=== PATIENT | female | born 1960 | race Caucasian/White ===

== ENCOUNTER 2017-03-12 11:37 | Emergency (ER) | payer OTHER ==
[2017-03-12] MEDS ORDERED: LIDOCAINE 1%, 20ML ONE (11:52)
== END 2017-03-12 13:23 | disposition home or self-care (01) ==
LOC: ED 12:50
DX: T81.89XA Other complications of procedures, not elsewhere classified, initial encounter (principal); Y83.8 Other surgical procedures as the cause of abnormal reaction of the patient, or of later complication, without mention of misadventure at the time of the procedure; Y92.89 Other specified places as the place of occurrence of the external cause
CPT/HCPCS: 71010; 99283

== ENCOUNTER 2018-08-17 18:34 | Inpatient (IN) | payer OTHER ==
[~2018-08-17] VITALS: Ht 177.8 cm; Wt 61.3 kg
[~2018-08-17 18:34] MED LIST: FOLI0.8T2 PO; HYDR-3237 PO; IBUP1TAB11 PO; [UNRECOGNIZED DRUG - OTHER] PO
[2018-08-17 19:29] VITALS: BP 112/71
[2018-08-17] MEDS ORDERED: OSIM80TA PO (19:37)
[2018-08-17] MEDS ORDERED: IBUP-1623 PO (19:37)
[2018-08-17] MEDS ORDERED: ZOLP5TAB PO (19:37)
[2018-08-17] MEDS ORDERED: PROC5TAB40 PO (19:37)
[2018-08-17] MEDS ORDERED: OXYC-302 PO (19:37)
[2018-08-17] MEDS ORDERED: ONDANSETRON 2MG/ML, 2ML IVPush PRN (20:00)
[2018-08-17] MEDS ORDERED: hydrALAzine 20 MG/ML, 1ML IVPush PRN (20:00)
[2018-08-17 20:25] LABS: BASOPHILS # (AUTO) 0.02 x10^3/uL (0-0.1); BASOPHILS % (AUTO) 0 % (0-1); EOSINOPHILS # (AUTO) 0.04 x10^3/uL (0-0.4); EOSINOPHILS % (AUTO) 1 % (1-7); LYMPHOCYTES # (AUTO) 0.97 x10^3/uL (1-3.4); LYMPHOCYTES % (AUTO) 14 % (22-44); MD NO; MEAN CORPUSCULAR HEMOGLOBIN 30.6 pg (27.0-34.8); MEAN CORPUSCULAR HGB CONC 33.8 g/dL (32.4-35.8); MEAN CORPUSCULAR VOLUME 90.7 fL (80-100); MEAN PLATELET VOLUME 7.9 fL (7.4-10.4); MONOCYTES # (AUTO) 0.43 x10^3/uL (0.2-0.8); MONOCYTES % (AUTO) 6 % (2-9); NEUTROPHILS # (AUTO) 5.46 x10^3/uL (1.8-6.8); NEUTROPHILS % (AUTO) 79 % (42-75); PLATELET COUNT 232 x10^3/uL (130-400); RED BLOOD COUNT 4.05 x10^6/uL (3.82-5.3); RED CELL DISTRIBUTION WIDTH 13.8 % (9.6-15.2)
[2018-08-17 20:29] LABS: INTERNATIONAL NORMALIZED RATIO 1.08 (0.93-1.1); PROTHROMBIN TIME 11.3 Seconds (9.6-11.5)
[2018-08-17] MEDS ORDERED: PROCHLORPERAZINE 5 MG/ML, 2ML IM PRN (20:30)
[2018-08-17] MEDS ORDERED: HYDROmorphone 1 MG/ML, 1ML INJ IM PRN (20:30)
[2018-08-17] MEDS ORDERED: MORPHINE SULFATE 4 MG/ML, 1ML IVPush PRN (20:30)
[2018-08-17 20:31] LABS: ANION GAP 8 mmol/L (5-15); CALCIUM 8.5 mg/dL (8.5-10.1); CHLORIDE 105 mmol/L (98-107); CREATININE 0.57 mg/dL (0.55-1.02)
[2018-08-17] MEDS: AMPICILLIN/SULBACTAM 3 GM in SODIUM CHLORIDE 0.9% 100 ML IV SCH (21:22)
[2018-08-17] MEDS: PROCHLORPERAZINE 5 MG/ML, 2ML IVPush PRN (21:22)
[2018-08-17] MEDS ORDERED: SODIUM CHLORIDE 0.9% 1,000 ML IV SCH (21:30)
[2018-08-17] MEDS: SODIUM CHLORIDE 0.9% 1,000 ML IV SCH (21:30)
[2018-08-17] MEDS ORDERED: HYDROmorphone 2 MG/ML, 1ML ONE (22:18)
[2018-08-18] MEDS: HYDROmorphone 2 MG/ML, 1ML IV PRN ×6 (02:00→23:40)
[2018-08-18] MEDS: PROCHLORPERAZINE 5 MG/ML, 2ML IVPush PRN ×7 (02:05→23:40)
[2018-08-18 02:49] VITALS: BP 115/74
[2018-08-18] MEDS: AMPICILLIN/SULBACTAM 3 GM in SODIUM CHLORIDE 0.9% 100 ML IV SCH ×3 (05:19→23:41)
[2018-08-18 06:39] LABS: BASOPHILS # (AUTO) 0.02 x10^3/uL (0-0.1); BASOPHILS % (AUTO) 0 % (0-1); EOSINOPHILS # (AUTO) 0.06 x10^3/uL (0-0.4); EOSINOPHILS % (AUTO) 1 % (1-7); LYMPHOCYTES # (AUTO) 0.83 x10^3/uL (1-3.4); LYMPHOCYTES % (AUTO) 14 % (22-44); MD NO; MEAN CORPUSCULAR HEMOGLOBIN 30.1 pg (27.0-34.8); MEAN CORPUSCULAR VOLUME 91.2 fL (80-100); MEAN PLATELET VOLUME 7.4 fL (7.4-10.4); MONOCYTES % (AUTO) 7 % (2-9); NEUTROPHILS # (AUTO) 4.46 x10^3/uL (1.8-6.8); NEUTROPHILS % (AUTO) 77 % (42-75); PLATELET COUNT 211 x10^3/uL (130-400); RED BLOOD COUNT 3.79 x10^6/uL (3.82-5.3); RED CELL DISTRIBUTION WIDTH 13.7 % (9.6-15.2)
[2018-08-18 06:52] LABS: ANION GAP 4 mmol/L (5-15); CALCIUM 7.9 mg/dL (8.5-10.1); CHLORIDE 111 mmol/L (98-107); CREATININE 0.56 mg/dL (0.55-1.02)
[2018-08-18 07:47] VITALS: BP 117/70
[2018-08-18] MEDS: SODIUM CHLORIDE 0.9% 1,000 ML IV SCH (08:55)
[2018-08-18] MEDS ORDERED: OSIMERTINIB MESYLATE PO SCH (09:00)
[2018-08-18 14:32] VITALS: BP 114/68
[2018-08-18] MEDS: IBUPROFEN 200 MG TABLET PO PRN ×2 (17:13→23:56)
[2018-08-18] MEDS ORDERED: ONDANSETRON 2MG/ML, 2ML IVPush PRN (18:00)
[2018-08-18] MEDS ORDERED: VANCOMYCIN PER PHARMACY MC PRN (18:30)
[2018-08-18] MEDS ORDERED: PHARMACOKINETIC CONSULTATION MC ONE (19:00)
[2018-08-18] MEDS ORDERED: PHARMACOKINETIC MONITORING MC PRN (19:00)
[2018-08-18] MEDS: DEXAMETHASONE 10 MG in SODIUM CHLORIDE 0.9% 50 ML IV SCH (19:22)
[2018-08-18] MEDS: ACETAMINOPHEN 500 MG TABLET PO PRN (19:22)
[2018-08-18] MEDS: VANCOMYCIN 1,300 MG in SODIUM CHLORIDE 0.9% 250 ML IV SCH (20:26)
[2018-08-18] MEDS ORDERED: SODIUM CHLORIDE 0.9% 1,000 ML IV SCH (21:30)
[2018-08-18 21:57] VITALS: BP 122/75
[2018-08-18 22:03] VITALS: BP 122/75
[2018-08-19] MEDS: ACETAMINOPHEN 500 MG TABLET PO PRN ×4 (01:56→20:31)
[2018-08-19 01:58] VITALS: BP 138/72
[2018-08-19] MEDS: HYDROmorphone 2 MG/ML, 1ML IV PRN ×2 (03:30→07:34)
[2018-08-19] MEDS: DEXAMETHASONE 10 MG in SODIUM CHLORIDE 0.9% 50 ML IV SCH (03:30)
[2018-08-19] MEDS: PROCHLORPERAZINE 5 MG/ML, 2ML IVPush PRN ×7 (03:30→23:22)
[2018-08-19 05:16] LABS: ALBUMIN 3.3 g/dL (3.4-5.0); CALCIUM 8.1 mg/dL (8.5-10.1); CHLORIDE 116 mmol/L (98-107)
[2018-08-19 05:19] LABS: ALANINE AMINOTRANSFERASE 62 U/L (12-78); ALKALINE PHOSPHATASE 140 U/L (45-117); BILIRUBIN,TOTAL 0.4 mg/dL (0.2-1.0); CREATININE 0.57 mg/dL (0.55-1.02); TOTAL PROTEIN 5.8 g/dL (6.4-8.2)
[2018-08-19 05:22] LABS: ANION GAP 6 mmol/L (5-15)
[2018-08-19] MEDS: IBUPROFEN 200 MG TABLET PO PRN ×3 (06:02→19:05)
[2018-08-19 07:22] VITALS: BP 138/78
[2018-08-19] MEDS: VANCOMYCIN 1,300 MG in SODIUM CHLORIDE 0.9% 250 ML IV SCH ×2 (07:35→19:05)
[2018-08-19] MEDS: AMPICILLIN/SULBACTAM 3 GM in SODIUM CHLORIDE 0.9% 100 ML IV SCH ×2 (10:14→17:52)
[2018-08-19] MEDS: DEXAMETHASONE 4 MG TABLET PO SCH ×2 (11:31→19:05)
[2018-08-19] MEDS: HYDROmorphone 2 MG/ML, 1ML IVPush PRN ×4 (11:44→21:12)
[2018-08-19 16:57] VITALS: BP 120/69
[2018-08-19 20:44] VITALS: BP 123/75
[2018-08-20] MEDS: HYDROmorphone 2 MG/ML, 1ML IVPush PRN ×8 (00:01→22:07)
[2018-08-20] MEDS: AMPICILLIN/SULBACTAM 3 GM in SODIUM CHLORIDE 0.9% 100 ML IV SCH ×3 (01:50→19:19)
[2018-08-20] MEDS: IBUPROFEN 200 MG TABLET PO PRN ×4 (01:50→21:01)
[2018-08-20 01:55] VITALS: BP 144/72
[2018-08-20] MEDS: PROCHLORPERAZINE 5 MG/ML, 2ML IVPush PRN ×4 (03:19→18:46)
[2018-08-20] MEDS: ACETAMINOPHEN 500 MG TABLET PO PRN ×4 (03:19→23:26)
[2018-08-20] MEDS: DEXAMETHASONE 4 MG TABLET PO SCH ×4 (04:13→23:29)
[2018-08-20] MEDS: VANCOMYCIN 1,300 MG in SODIUM CHLORIDE 0.9% 250 ML IV SCH ×2 (06:30→20:42)
[2018-08-20 06:52] VITALS: BP 143/73
[2018-08-20] MEDS ORDERED: LORazepam 2 MG/ML, 1ML IVPush ONE (08:30)
[2018-08-20] MEDS ORDERED: BISACODYL 10 MG SUPP PR PRN (09:00)
[2018-08-20] MEDS ORDERED: SENNA/DOCUSATE TABLET PO SCH (09:00)
[2018-08-20] MEDS: SENNA/DOCUSATE TABLET PO SCH (09:52)
[2018-08-20] MEDS ORDERED: GADOBUTROL 7.5 MMOL/7.5 ML PFS ONE (11:20)
[2018-08-20 12:51] VITALS: BP 144/69
[2018-08-20 18:55] VITALS: BP 122/69
[2018-08-20] MEDS: MAGNESIUM HYDROXIDE 8%, 30ML UDC PO PRN (23:26)
[2018-08-21] MEDS: HYDROmorphone 2 MG/ML, 1ML IVPush PRN ×5 (00:58→19:33)
[2018-08-21] MEDS: ZOLPIDEM 5MG TABLET PO PRN ×2 (00:58→21:35)
[2018-08-21] MEDS: PROCHLORPERAZINE 5 MG/ML, 2ML IVPush PRN ×2 (00:58→07:08)
[2018-08-21] MEDS: IBUPROFEN 200 MG TABLET PO PRN ×4 (03:04→21:35)
[2018-08-21] MEDS: AMPICILLIN/SULBACTAM 3 GM in SODIUM CHLORIDE 0.9% 100 ML IV SCH ×3 (03:05→19:33)
[2018-08-21 04:22] VITALS: BP 151/85
[2018-08-21 07:45] VITALS: BP 155/80
[2018-08-21] MEDS: SENNA/DOCUSATE TABLET PO SCH (07:58)
[2018-08-21] MEDS: DEXAMETHASONE 4 MG TABLET PO SCH (07:59)
[2018-08-21] MEDS: VANCOMYCIN 1,300 MG in SODIUM CHLORIDE 0.9% 250 ML IV SCH (08:00)
[2018-08-21] MEDS: ACETAMINOPHEN 500 MG TABLET PO PRN ×3 (08:19→20:54)
[2018-08-21] MEDS: HYDROmorphone 2MG TABLET PO PRN ×4 (10:22→22:29)
[2018-08-21] MEDS: PROCHLORPERAZINE 10MG TABLET PO PRN ×2 (13:16→20:57)
[2018-08-21 14:42] VITALS: BP 154/79
[2018-08-21] MEDS ORDERED: HYDROmorphone 2MG TABLET PO PRN (15:00)
[2018-08-21 18:51] VITALS: BP 129/85
[2018-08-21] MEDS: VANCOMYCIN 1,400 MG in SODIUM CHLORIDE 0.9% 250 ML IV SCH (20:55)
[2018-08-21] MEDS ORDERED: DEXAMETHASONE 4 MG TABLET PO SCH (21:00)
[2018-08-22] MEDS: DIAZEPAM 2 MG TABLET PO PRN ×2 (01:11→11:02)
[2018-08-22 02:12] VITALS: BP 161/81
[2018-08-22] MEDS: HYDROmorphone 2MG TABLET PO PRN ×6 (02:14→23:02)
[2018-08-22] MEDS: AMPICILLIN/SULBACTAM 3 GM in SODIUM CHLORIDE 0.9% 100 ML IV SCH ×3 (03:03→19:07)
[2018-08-22] MEDS: IBUPROFEN 200 MG TABLET PO PRN ×3 (03:03→17:07)
[2018-08-22 05:50] LABS: ALANINE AMINOTRANSFERASE 688 U/L (12-78); ALBUMIN 3.3 g/dL (3.4-5.0); ANION GAP 5 mmol/L (5-15); CALCIUM 7.9 mg/dL (8.5-10.1); CHLORIDE 112 mmol/L (98-107); CREATININE 0.43 mg/dL (0.55-1.02)
[2018-08-22 05:52] LABS: ALKALINE PHOSPHATASE 146 U/L (45-117); BILIRUBIN,TOTAL 0.3 mg/dL (0.2-1.0); TOTAL PROTEIN 5.8 g/dL (6.4-8.2)
[2018-08-22] MEDS: HYDROmorphone 2 MG/ML, 1ML IVPush PRN ×3 (06:04→19:46)
[2018-08-22 07:25] VITALS: BP 159/72
[2018-08-22] MEDS ORDERED: POTASSIUM CHLORIDE 20 MEQ TAB.ER.PRT PO ONE (07:30)
[2018-08-22] MEDS ORDERED: SUMATRIPTAN 6MG/0.5ML SQ ONE (07:30)
[2018-08-22] MEDS: VANCOMYCIN 1,400 MG in SODIUM CHLORIDE 0.9% 250 ML IV SCH ×2 (08:01→21:39)
[2018-08-22] MEDS: SENNA/DOCUSATE TABLET PO SCH (09:24)
[2018-08-22] MEDS: PROCHLORPERAZINE 10MG TABLET PO PRN ×2 (11:02→17:07)
[2018-08-22 11:38] LABS: ALBUMIN 3.4 g/dL (3.4-5.0); BILIRUBIN, DIRECT 0.1 mg/dL (0.1-0.2)
[2018-08-22 11:40] LABS: BILIRUBIN,INDIRECT 0.2 mg/dL (0.0-2.0); BILIRUBIN,TOTAL 0.3 mg/dL (0.2-1.0); TOTAL PROTEIN 5.8 g/dL (6.4-8.2)
[2018-08-22 12:05] LABS: BASOPHILS % (AUTO) 0 % (0-1); EOSINOPHILS % (AUTO) 0 % (1-7); LYMPHOCYTES # (AUTO) 0.62 x10^3/uL (1-3.4); LYMPHOCYTES % (AUTO) 7 % (22-44); MD NO; MEAN CORPUSCULAR HEMOGLOBIN 30.1 pg (27.0-34.8); MEAN CORPUSCULAR HGB CONC 32.6 g/dL (32.4-35.8); MEAN CORPUSCULAR VOLUME 92.4 fL (80-100); MEAN PLATELET VOLUME 8.5 fL (7.4-10.4); MONOCYTES # (AUTO) 0.81 x10^3/uL (0.2-0.8); MONOCYTES % (AUTO) 9 % (2-9); NEUTROPHILS # (AUTO) 7.57 x10^3/uL (1.8-6.8); NEUTROPHILS % (AUTO) 84 % (42-75); PLATELET COUNT 206 x10^3/uL (130-400); RED BLOOD COUNT 3.58 x10^6/uL (3.82-5.3); RED CELL DISTRIBUTION WIDTH 14.7 % (9.6-15.2)
[2018-08-22 12:41] VITALS: BP 84/53
[2018-08-22 12:53] VITALS: BP 104/61
[2018-08-22] MEDS ORDERED: VALPROATE SODIUM 100 MG/ML, 5ML IVPB SCH (14:00)
[2018-08-22] MEDS: VALPROATE SODIUM 500 MG in SODIUM CHLORIDE 0.9% 100 ML IV SCH ×2 (14:50→20:32)
[2018-08-22] MEDS ORDERED: OMNIPAQUE 350 MG/ML, 100ML BOTTLE ONE (15:18)
[2018-08-22] MEDS: DEXAMETHASONE 4 MG TABLET PO SCH ×2 (17:07→21:38)
[2018-08-22 20:01] VITALS: BP 128/73
[2018-08-22] MEDS: ZOLPIDEM 5MG TABLET PO PRN (23:06)
[2018-08-23] MEDS: DIAZEPAM 2 MG TABLET PO PRN ×2 (01:31→14:58)
[2018-08-23] MEDS: VALPROATE SODIUM 500 MG in SODIUM CHLORIDE 0.9% 100 ML IV SCH ×2 (01:32→08:17)
[2018-08-23 03:00] VITALS: BP 147/73
[2018-08-23] MEDS: HYDROmorphone 2MG TABLET PO PRN ×5 (03:01→21:16)
[2018-08-23] MEDS: AMPICILLIN/SULBACTAM 3 GM in SODIUM CHLORIDE 0.9% 100 ML IV SCH (03:01)
[2018-08-23 07:27] VITALS: BP 131/75
[2018-08-23 08:28] LABS: BASOPHILS # (AUTO) 0.01 x10^3/uL (0-0.1); BASOPHILS % (AUTO) 0 % (0-1); EOSINOPHILS % (AUTO) 0 % (1-7); LYMPHOCYTES # (AUTO) 0.72 x10^3/uL (1-3.4); LYMPHOCYTES % (AUTO) 7 % (22-44); MD NO; MEAN CORPUSCULAR HEMOGLOBIN 29.9 pg (27.0-34.8); MEAN CORPUSCULAR HGB CONC 32.5 g/dL (32.4-35.8); MEAN CORPUSCULAR VOLUME 91.9 fL (80-100); MEAN PLATELET VOLUME 8.3 fL (7.4-10.4); MONOCYTES # (AUTO) 0.52 x10^3/uL (0.2-0.8); MONOCYTES % (AUTO) 5 % (2-9); NEUTROPHILS # (AUTO) 8.97 x10^3/uL (1.8-6.8); NEUTROPHILS % (AUTO) 88 % (42-75); PLATELET COUNT 231 x10^3/uL (130-400); RED BLOOD COUNT 3.85 x10^6/uL (3.82-5.3); RED CELL DISTRIBUTION WIDTH 14.3 % (9.6-15.2)
[2018-08-23 08:38] LABS: ALBUMIN 3.2 g/dL (3.4-5.0); ANION GAP 7 mmol/L (5-15); CALCIUM 7.9 mg/dL (8.5-10.1); CHLORIDE 108 mmol/L (98-107)
[2018-08-23 08:41] LABS: ALANINE AMINOTRANSFERASE 544 U/L (12-78); ALKALINE PHOSPHATASE 132 U/L (45-117); BILIRUBIN,TOTAL 0.3 mg/dL (0.2-1.0); TOTAL PROTEIN 5.8 g/dL (6.4-8.2)
[2018-08-23 08:52] VITALS: BP 122/63
[2018-08-23] MEDS: HYDROmorphone 2 MG/ML, 1ML IVPush PRN ×4 (08:59→22:15)
[2018-08-23] MEDS: SENNA/DOCUSATE TABLET PO SCH (10:17)
[2018-08-23] MEDS: DEXAMETHASONE 4 MG TABLET PO SCH ×3 (10:17→21:16)
[2018-08-23] MEDS: CEFDINIR 300 MG CAPSULE PO SCH ×2 (10:17→21:16)
[2018-08-23] MEDS: IBUPROFEN 200 MG TABLET PO PRN ×3 (10:18→23:29)
[2018-08-23] MEDS: POTASSIUM CHLORIDE 20 MEQ TAB.ER.PRT PO SCH ×2 (10:52→17:53)
[2018-08-23 13:04] VITALS: BP 155/69
[2018-08-23] MEDS ORDERED: GADOBUTROL 7.5 MMOL/7.5 ML VIAL ONE (16:02)
[2018-08-23] MEDS ORDERED: DIPHENHYDRAMINE 50 MG/ML, 1ML IVPush PRN (18:00)
[2018-08-23] MEDS: METOCLOPRAMIDE 5 MG/ML, 2ML IVPush PRN (18:40)
[2018-08-23 21:16] VITALS: BP 108/64
[2018-08-24] MEDS: HYDROmorphone 2MG TABLET PO PRN ×5 (01:07→23:40)
[2018-08-24 01:40] VITALS: BP 137/74
[2018-08-24] MEDS: DIAZEPAM 2 MG TABLET PO PRN (03:47)
[2018-08-24 05:34] LABS: ALBUMIN 3.1 g/dL (3.4-5.0); ANION GAP 4 mmol/L (5-15); CALCIUM 7.9 mg/dL (8.5-10.1); CHLORIDE 109 mmol/L (98-107)
[2018-08-24 05:39] LABS: ALANINE AMINOTRANSFERASE 460 U/L (12-78); ALKALINE PHOSPHATASE 130 U/L (45-117); BILIRUBIN,TOTAL 0.2 mg/dL (0.2-1.0); CREATININE 0.47 mg/dL (0.55-1.02); TOTAL PROTEIN 5.7 g/dL (6.4-8.2)
[2018-08-24] MEDS ORDERED: DIPHENHYDRAMINE 50 MG/ML, 1ML ONE (07:44)
[2018-08-24] MEDS: CEFDINIR 300 MG CAPSULE PO SCH ×2 (07:50→20:03)
[2018-08-24] MEDS: POTASSIUM CHLORIDE 20 MEQ TAB.ER.PRT PO SCH ×2 (07:50→17:30)
[2018-08-24] MEDS: DEXAMETHASONE 4 MG TABLET PO SCH ×2 (07:50→20:03)
[2018-08-24] MEDS: SENNA/DOCUSATE TABLET PO SCH (07:50)
[2018-08-24] MEDS: METOCLOPRAMIDE 5 MG/ML, 2ML IVPush PRN (07:51)
[2018-08-24] MEDS: IBUPROFEN 200 MG TABLET PO PRN (07:51)
[2018-08-24] MEDS: MAGNESIUM HYDROXIDE 8%, 30ML UDC PO PRN (07:51)
[2018-08-24 07:56] VITALS: BP 158/76
[2018-08-24] MEDS: HYDROmorphone 2 MG/ML, 1ML IVPush PRN ×4 (09:30→22:04)
[2018-08-24] MEDS ORDERED: DIPHENHYDRAMINE 50 MG/ML, 1ML IVPush PRN (12:00)
[2018-08-24] MEDS: KETOROLAC 30 MG/1 ML IM PRN ×2 (13:33→20:04)
[2018-08-24 17:34] VITALS: BP 125/65
[2018-08-24 22:40] VITALS: BP 134/81
[2018-08-24] MEDS: ZOLPIDEM 5MG TABLET PO PRN (23:40)
[2018-08-25 00:38] VITALS: BP 151/80
[2018-08-25] MEDS ORDERED: KETOROLAC 30 MG/1 ML ONE (02:10)
[2018-08-25] MEDS: KETOROLAC 30 MG/1 ML IV PRN ×2 (02:13→07:55)
[2018-08-25] MEDS: HYDROmorphone 2 MG/ML, 1ML IVPush PRN ×3 (04:50→16:53)
[2018-08-25 05:16] LABS: BASOPHILS # (AUTO) 0.03 x10^3/uL (0-0.1); BASOPHILS % (AUTO) 0 % (0-1); EOSINOPHILS % (AUTO) 0 % (1-7); LYMPHOCYTES # (AUTO) 0.62 x10^3/uL (1-3.4); LYMPHOCYTES % (AUTO) 4 % (22-44); MD NO; MEAN CORPUSCULAR HEMOGLOBIN 31.1 pg (27.0-34.8); MEAN CORPUSCULAR HGB CONC 33.7 g/dL (32.4-35.8); MEAN CORPUSCULAR VOLUME 92.3 fL (80-100); MEAN PLATELET VOLUME 8.2 fL (7.4-10.4); MONOCYTES # (AUTO) 0.38 x10^3/uL (0.2-0.8); MONOCYTES % (AUTO) 3 % (2-9); NEUTROPHILS # (AUTO) 12.88 x10^3/uL (1.8-6.8); NEUTROPHILS % (AUTO) 93 % (42-75); PLATELET COUNT 234 x10^3/uL (130-400); RED BLOOD COUNT 3.88 x10^6/uL (3.82-5.3); RED CELL DISTRIBUTION WIDTH 14.4 % (9.6-15.2)
[2018-08-25 05:31] LABS: ALANINE AMINOTRANSFERASE 366 U/L (12-78); ALBUMIN 3.1 g/dL (3.4-5.0); CALCIUM 7.8 mg/dL (8.5-10.1); CREATININE 0.65 mg/dL (0.55-1.02)
[2018-08-25 05:42] LABS: ALKALINE PHOSPHATASE 121 U/L (45-117); ANION GAP 6 mmol/L (5-15); BILIRUBIN,TOTAL 0.4 mg/dL (0.2-1.0); CHLORIDE 106 mmol/L (98-107); FREE T4 (FREE THYROXINE) 0.82 ng/dL (0.76-1.46); THYROID STIMULATING HORMONE 0.104 mIU/L (0.358-3.740); TOTAL PROTEIN 5.4 g/dL (6.4-8.2)
[2018-08-25] MEDS: HYDROmorphone 2MG TABLET PO PRN ×4 (06:13→19:28)
[2018-08-25] MEDS: CEFDINIR 300 MG CAPSULE PO SCH ×2 (07:54→22:11)
[2018-08-25] MEDS: DEXAMETHASONE 4 MG TABLET PO SCH ×2 (07:54→22:11)
[2018-08-25] MEDS: POTASSIUM CHLORIDE 20 MEQ TAB.ER.PRT PO SCH ×2 (07:54→16:53)
[2018-08-25] MEDS: DIAZEPAM 2 MG TABLET PO PRN ×2 (07:55→17:39)
[2018-08-25] MEDS: SENNA/DOCUSATE TABLET PO SCH (07:55)
[2018-08-25 10:05] VITALS: BP 119/84
[2018-08-25 13:59] VITALS: BP 146/90
[2018-08-25] MEDS: PROCHLORPERAZINE 5 MG/ML, 2ML IVPush PRN (15:05)
[2018-08-25] MEDS ORDERED: HYDROmorphone 2 MG/ML, 1ML IVPush ONE (18:00)
[2018-08-25] MEDS: FENTANYL REMOVE PATCH NOTE XX SCH (18:00)
[2018-08-25] MEDS: FENTANYL 50 MCG PATCH TD SCH (18:22)
[2018-08-25 19:05] VITALS: BP 105/67
[2018-08-25] MEDS: METOCLOPRAMIDE 5 MG/ML, 2ML IVPush PRN (23:33)
[2018-08-25] MEDS: DIPHENHYDRAMINE 50 MG/ML, 1ML IVPush PRN (23:33)
[2018-08-26 01:58] VITALS: BP 140/83
[2018-08-26] MEDS: HYDROmorphone 2 MG/ML, 1ML IVPush PRN ×6 (02:02→23:51)
[2018-08-26] MEDS: METOCLOPRAMIDE 5 MG/ML, 2ML IVPush PRN ×3 (05:40→21:29)
[2018-08-26] MEDS: DIPHENHYDRAMINE 50 MG/ML, 1ML IVPush PRN ×3 (05:40→21:29)
[2018-08-26 06:29] LABS: BASOPHILS # (AUTO) 0.01 x10^3/uL (0-0.1); BASOPHILS % (AUTO) 0 % (0-1); EOSINOPHILS # (AUTO) 0.12 x10^3/uL (0-0.4); EOSINOPHILS % (AUTO) 1 % (1-7); LYMPHOCYTES # (AUTO) 0.85 x10^3/uL (1-3.4); LYMPHOCYTES % (AUTO) 5 % (22-44); MD NO; MEAN CORPUSCULAR HEMOGLOBIN 31.1 pg (27.0-34.8); MEAN CORPUSCULAR HGB CONC 33.7 g/dL (32.4-35.8); MEAN CORPUSCULAR VOLUME 92.5 fL (80-100); MEAN PLATELET VOLUME 8.8 fL (7.4-10.4); MONOCYTES % (AUTO) 4 % (2-9); NEUTROPHILS # (AUTO) 15.19 x10^3/uL (1.8-6.8); NEUTROPHILS % (AUTO) 90 % (42-75); PLATELET COUNT 274 x10^3/uL (130-400); RED BLOOD COUNT 4.08 x10^6/uL (3.82-5.3); RED CELL DISTRIBUTION WIDTH 14.9 % (9.6-15.2)
[2018-08-26 06:38] LABS: ALBUMIN 3.2 g/dL (3.4-5.0); ANION GAP 7 mmol/L (5-15); CALCIUM 8.2 mg/dL (8.5-10.1); CHLORIDE 107 mmol/L (98-107)
[2018-08-26 06:42] LABS: ALANINE AMINOTRANSFERASE 325 U/L (12-78); ALKALINE PHOSPHATASE 128 U/L (45-117); BILIRUBIN,TOTAL 0.2 mg/dL (0.2-1.0); TOTAL PROTEIN 5.8 g/dL (6.4-8.2)
[2018-08-26 07:01] VITALS: BP 117/75
[2018-08-26] MEDS: SENNA/DOCUSATE TABLET PO SCH (07:45)
[2018-08-26] MEDS: DEXAMETHASONE 4 MG TABLET PO SCH ×2 (07:46→21:28)
[2018-08-26] MEDS: POTASSIUM CHLORIDE 20 MEQ TAB.ER.PRT PO SCH ×2 (07:46→18:48)
[2018-08-26] MEDS: CEFDINIR 300 MG CAPSULE PO SCH ×2 (07:46→21:28)
[2018-08-26] MEDS ORDERED: AJOVY 225 MG SC ONE ×2 (11:30)
[2018-08-26 14:05] VITALS: BP 103/62
[2018-08-26] MEDS ORDERED: FREMANEZUMAB SQ ONE (15:30)
[2018-08-26] MEDS: AMITRIPTYLINE 25 MG TABLET PO SCH (21:28)
[2018-08-26 21:40] VITALS: BP 109/55
[2018-08-27 01:50] VITALS: BP 129/33
[2018-08-27] MEDS: METOCLOPRAMIDE 5 MG/ML, 2ML IVPush PRN ×3 (03:52→18:16)
[2018-08-27] MEDS: DIPHENHYDRAMINE 50 MG/ML, 1ML IVPush PRN ×3 (03:52→18:16)
[2018-08-27] MEDS: HYDROmorphone 2 MG/ML, 1ML IVPush PRN ×5 (05:20→22:34)
[2018-08-27] MEDS: SENNA/DOCUSATE TABLET PO SCH (08:40)
[2018-08-27] MEDS: POTASSIUM CHLORIDE 20 MEQ TAB.ER.PRT PO SCH ×2 (08:40→16:23)
[2018-08-27] MEDS: CEFDINIR 300 MG CAPSULE PO SCH ×2 (08:40→21:14)
[2018-08-27] MEDS: DEXAMETHASONE 4 MG TABLET PO SCH (08:41)
[2018-08-27 09:15] VITALS: BP 98/61
[2018-08-27] MEDS: NYSTATIN 500,000 UNITS/5 ML UDC PO SCH ×3 (11:44→21:00)
[2018-08-27 14:35] VITALS: BP 126/75
[2018-08-27 20:41] VITALS: BP 105/60
[2018-08-27] MEDS: AMITRIPTYLINE 25 MG TABLET PO SCH (21:00)
[2018-08-27] MEDS: DEXAMETHASONE 1 MG TABLET PO SCH (21:16)
[2018-08-28] MEDS: METOCLOPRAMIDE 5 MG/ML, 2ML IVPush PRN ×4 (00:40→18:44)
[2018-08-28] MEDS: DIPHENHYDRAMINE 50 MG/ML, 1ML IVPush PRN ×4 (00:40→18:44)
[2018-08-28 00:47] VITALS: BP 117/71
[2018-08-28] MEDS: HYDROmorphone 2 MG/ML, 1ML IVPush PRN ×2 (04:02→07:33)
[2018-08-28] MEDS: NYSTATIN 500,000 UNITS/5 ML UDC PO SCH ×3 (06:35→18:55)
[2018-08-28 07:45] VITALS: BP 108/68
[2018-08-28] MEDS: CEFDINIR 300 MG CAPSULE PO SCH ×2 (09:56→21:13)
[2018-08-28] MEDS: SENNA/DOCUSATE TABLET PO SCH (09:56)
[2018-08-28] MEDS: POTASSIUM CHLORIDE 20 MEQ TAB.ER.PRT PO SCH ×2 (09:56→18:44)
[2018-08-28] MEDS: DEXAMETHASONE 4 MG TABLET PO SCH (09:57)
[2018-08-28] MEDS ORDERED: HYDROmorphone 2 MG/ML, 1ML IM ONE (10:30)
[2018-08-28 11:12] LABS: BASOPHILS # (AUTO) 0.01 x10^3/uL (0-0.1); BASOPHILS % (AUTO) 0 % (0-1); EOSINOPHILS # (AUTO) 0.19 x10^3/uL (0-0.4); EOSINOPHILS % (AUTO) 1 % (1-7); LYMPHOCYTES # (AUTO) 0.89 x10^3/uL (1-3.4); LYMPHOCYTES % (AUTO) 5 % (22-44); MD NO; MEAN CORPUSCULAR HEMOGLOBIN 31.2 pg (27.0-34.8); MEAN CORPUSCULAR HGB CONC 33.8 g/dL (32.4-35.8); MEAN CORPUSCULAR VOLUME 92.3 fL (80-100); MONOCYTES # (AUTO) 1.41 x10^3/uL (0.2-0.8); MONOCYTES % (AUTO) 8 % (2-9); NEUTROPHILS # (AUTO) 15.25 x10^3/uL (1.8-6.8); NEUTROPHILS % (AUTO) 86 % (42-75); PLATELET COUNT 228 x10^3/uL (130-400); RED CELL DISTRIBUTION WIDTH 14.8 % (9.6-15.2)
[2018-08-28 11:22] LABS: ALANINE AMINOTRANSFERASE 302 U/L (12-78); ALBUMIN 2.9 g/dL (3.4-5.0); ANION GAP 8 mmol/L (5-15); CALCIUM 7.7 mg/dL (8.5-10.1); CHLORIDE 102 mmol/L (98-107); CREATININE 0.41 mg/dL (0.55-1.02)
[2018-08-28 11:25] LABS: ALKALINE PHOSPHATASE 115 U/L (45-117); BILIRUBIN,TOTAL 0.3 mg/dL (0.2-1.0); TOTAL PROTEIN 5.4 g/dL (6.4-8.2)
[2018-08-28] MEDS ORDERED: HYDROmorphone 2MG TABLET ONE ×2 (12:30→15:20)
[2018-08-28] MEDS: HYDROmorphone 4MG TABLET PO PRN ×2 (12:36→15:30)
[2018-08-28 14:00] VITALS: BP 97/54
[2018-08-28] MEDS: FENTANYL REMOVE PATCH NOTE XX SCH (18:00)
[2018-08-28] MEDS: HYDROmorphone 2 MG/ML, 1ML IV PRN ×2 (18:08→22:07)
[2018-08-28] MEDS: FENTANYL 50 MCG PATCH TD SCH (18:44)
[2018-08-28 20:50] VITALS: BP 107/59
[2018-08-28] MEDS: AMITRIPTYLINE 50 MG TABLET PO SCH (21:13)
[2018-08-28] MEDS: DEXAMETHASONE 1 MG TABLET PO SCH (21:13)
[2018-08-29] MEDS: METOCLOPRAMIDE 5 MG/ML, 2ML IVPush PRN ×4 (00:37→20:08)
[2018-08-29] MEDS: NYSTATIN 500,000 UNITS/5 ML UDC PO SCH ×5 (00:38→20:09)
[2018-08-29] MEDS: DIPHENHYDRAMINE 50 MG/ML, 1ML IVPush PRN ×4 (00:38→20:08)
[2018-08-29 00:56] VITALS: BP 124/73
[2018-08-29 05:29] LABS: MEAN CORPUSCULAR HEMOGLOBIN 31.1 pg (27.0-34.8); MEAN CORPUSCULAR HGB CONC 33.7 g/dL (32.4-35.8); MEAN CORPUSCULAR VOLUME 92.4 fL (80-100); MEAN PLATELET VOLUME 8.1 fL (7.4-10.4); PLATELET COUNT 251 x10^3/uL (130-400); RED BLOOD COUNT 3.98 x10^6/uL (3.82-5.3); RED CELL DISTRIBUTION WIDTH 14.9 % (9.6-15.2)
[2018-08-29 05:43] LABS: ANION GAP 4 mmol/L (5-15); CALCIUM 8.2 mg/dL (8.5-10.1); CHLORIDE 105 mmol/L (98-107)
[2018-08-29 05:44] LABS: CREATININE 0.54 mg/dL (0.55-1.02)
[2018-08-29 06:04] LABS: BASOPHILS % (AUTO) 0 % (0-1); EOSINOPHILS # (AUTO) 0.18 x10^3/uL (0-0.4); EOSINOPHILS % (AUTO) 1 % (1-7); LYMPHOCYTES # (AUTO) 1.01 x10^3/uL (1-3.4); LYMPHOCYTES % (AUTO) 6 % (22-44); MD SCAN; MONOCYTES # (AUTO) 0.66 x10^3/uL (0.2-0.8); MONOCYTES % (AUTO) 4 % (2-9); NEUTROPHILS # (AUTO) 16.53 x10^3/uL (1.8-6.8); NEUTROPHILS % (AUTO) 90 % (42-75)
[2018-08-29 09:00] VITALS: BP 115/74
[2018-08-29] MEDS: HYDROmorphone 2 MG/ML, 1ML IV PRN ×3 (09:52→20:57)
[2018-08-29] MEDS: CEFDINIR 300 MG CAPSULE PO SCH ×2 (10:26→20:08)
[2018-08-29] MEDS: SENNA/DOCUSATE TABLET PO SCH (10:26)
[2018-08-29] MEDS: DEXAMETHASONE 4 MG TABLET PO SCH (10:26)
[2018-08-29] MEDS: POTASSIUM CHLORIDE 20 MEQ TAB.ER.PRT PO SCH ×2 (10:27→17:28)
[2018-08-29] MEDS ORDERED: LIDOCAINE-MPF 1%, 5ML ONE (10:47)
[2018-08-29 14:00] VITALS: BP 105/67
[2018-08-29] MEDS ORDERED: FENTANYL 25 MCG PATCH ONE (15:40)
[2018-08-29] MEDS ORDERED: FENTANYL 50 MCG PATCH ONE (15:40)
[2018-08-29] MEDS: FENTANYL 75 MCG PATCH TD SCH (15:45)
[2018-08-29 19:31] VITALS: BP 112/68
[2018-08-29] MEDS: AMITRIPTYLINE 50 MG TABLET PO SCH (20:08)
[2018-08-29] MEDS: DEXAMETHASONE 1 MG TABLET PO SCH (20:08)
[2018-08-30 01:07] VITALS: BP 113/73
[2018-08-30] MEDS: METOCLOPRAMIDE 5 MG/ML, 2ML IVPush PRN (03:02)
[2018-08-30] MEDS: DIPHENHYDRAMINE 50 MG/ML, 1ML IVPush PRN (03:02)
[2018-08-30] MEDS: NYSTATIN 500,000 UNITS/5 ML UDC PO SCH ×4 (05:51→20:36)
[2018-08-30 06:06] LABS: BASOPHILS % (AUTO) 0 % (0-1); EOSINOPHILS % (AUTO) 2 % (1-7); LYMPHOCYTES # (AUTO) 0.84 x10^3/uL (1-3.4); LYMPHOCYTES % (AUTO) 5 % (22-44); MD NO; MEAN CORPUSCULAR HGB CONC 33.4 g/dL (32.4-35.8); MEAN CORPUSCULAR VOLUME 92.9 fL (80-100); MEAN PLATELET VOLUME 7.9 fL (7.4-10.4); MONOCYTES % (AUTO) 5 % (2-9); NEUTROPHILS # (AUTO) 15.66 x10^3/uL (1.8-6.8); NEUTROPHILS % (AUTO) 88 % (42-75); PLATELET COUNT 245 x10^3/uL (130-400); RED BLOOD COUNT 3.89 x10^6/uL (3.82-5.3); RED CELL DISTRIBUTION WIDTH 15.1 % (9.6-15.2)
[2018-08-30 06:19] LABS: CALCIUM 8.2 mg/dL (8.5-10.1)
[2018-08-30 06:20] LABS: CREATININE 0.57 mg/dL (0.55-1.02)
[2018-08-30 06:28] LABS: ANION GAP 4 mmol/L (5-15); CHLORIDE 104 mmol/L (98-107)
[2018-08-30] MEDS: POTASSIUM CHLORIDE 20 MEQ TAB.ER.PRT PO SCH (08:23)
[2018-08-30] MEDS: CEFDINIR 300 MG CAPSULE PO SCH ×2 (08:23→20:33)
[2018-08-30] MEDS: DEXAMETHASONE 4 MG TABLET PO SCH (08:23)
[2018-08-30] MEDS ORDERED: DIPHENHYDRAMINE 25 MG CAPSULE ONE (08:27)
[2018-08-30] MEDS ORDERED: METOCLOPRAMIDE 10MG TABLET ONE (08:27)
[2018-08-30] MEDS: METOCLOPRAMIDE 10MG TABLET PO PRN ×3 (08:30→20:34)
[2018-08-30] MEDS: DIPHENHYDRAMINE 25 MG CAPSULE PO PRN ×3 (08:30→20:33)
[2018-08-30 08:58] VITALS: BP 102/61
[2018-08-30] MEDS: SENNA/DOCUSATE TABLET PO SCH (10:15)
[2018-08-30] MEDS ORDERED: HYDROmorphone 2MG TABLET PO PRN (10:30)
[2018-08-30] MEDS ORDERED: METOCLOPRAMIDE 5 MG/ML, 2ML IVPush PRN (10:30)
[2018-08-30] MEDS: HYDROmorphone 4MG TABLET PO PRN ×4 (10:50→21:23)
[2018-08-30] MEDS ORDERED: HYDROmorphone 2MG TABLET ONE ×5 (10:51→21:15)
[2018-08-30 14:45] VITALS: BP 117/70
[2018-08-30 18:50] VITALS: BP 116/74
[2018-08-30] MEDS: MAGNESIUM HYDROXIDE 8%, 30ML UDC PO PRN (19:32)
[2018-08-30] MEDS: AMITRIPTYLINE 50 MG TABLET PO SCH (20:33)
[2018-08-30] MEDS: DEXAMETHASONE 1 MG TABLET PO SCH (20:33)
[2018-08-31] MEDS ORDERED: HYDROmorphone 2MG TABLET ONE ×8 (00:39→21:56)
[2018-08-31] MEDS: HYDROmorphone 4MG TABLET PO PRN ×8 (00:41→21:59)
[2018-08-31 01:05] VITALS: BP 144/80
[2018-08-31] MEDS: DIPHENHYDRAMINE 25 MG CAPSULE PO PRN ×4 (02:34→20:47)
[2018-08-31] MEDS: METOCLOPRAMIDE 10MG TABLET PO PRN ×4 (02:35→20:47)
[2018-08-31 03:01] LABS: BASOPHILS # (AUTO) 0.01 x10^3/uL (0-0.1); BASOPHILS % (AUTO) 0 % (0-1); EOSINOPHILS # (AUTO) 0.23 x10^3/uL (0-0.4); EOSINOPHILS % (AUTO) 1 % (1-7); LYMPHOCYTES # (AUTO) 0.67 x10^3/uL (1-3.4); LYMPHOCYTES % (AUTO) 4 % (22-44); MD NO; MEAN CORPUSCULAR HEMOGLOBIN 31.3 pg (27.0-34.8); MEAN CORPUSCULAR VOLUME 92.1 fL (80-100); MONOCYTES # (AUTO) 0.64 x10^3/uL (0.2-0.8); MONOCYTES % (AUTO) 4 % (2-9); NEUTROPHILS # (AUTO) 15.78 x10^3/uL (1.8-6.8); NEUTROPHILS % (AUTO) 91 % (42-75); PLATELET COUNT 241 x10^3/uL (130-400); RED BLOOD COUNT 3.88 x10^6/uL (3.82-5.3); RED CELL DISTRIBUTION WIDTH 14.8 % (9.6-15.2)
[2018-08-31 03:10] LABS: ALBUMIN 3.2 g/dL (3.4-5.0); ANION GAP 4 mmol/L (5-15); CALCIUM 8.1 mg/dL (8.5-10.1); CHLORIDE 102 mmol/L (98-107)
[2018-08-31 03:13] LABS: ALANINE AMINOTRANSFERASE 280 U/L (12-78); ALKALINE PHOSPHATASE 118 U/L (45-117); BILIRUBIN,TOTAL 0.2 mg/dL (0.2-1.0); CREATININE 0.54 mg/dL (0.55-1.02); TOTAL PROTEIN 5.9 g/dL (6.4-8.2)
[2018-08-31] MEDS: NYSTATIN 500,000 UNITS/5 ML UDC PO SCH ×4 (06:13→20:46)
[2018-08-31] MEDS: POTASSIUM CHLORIDE 20 MEQ TAB.ER.PRT PO SCH (08:44)
[2018-08-31] MEDS: SENNA/DOCUSATE TABLET PO SCH (08:44)
[2018-08-31] MEDS: DEXAMETHASONE 4 MG TABLET PO SCH (08:44)
[2018-08-31] MEDS: CEFDINIR 300 MG CAPSULE PO SCH ×2 (08:44→20:47)
[2018-08-31 08:49] VITALS: BP 124/83
[2018-08-31 12:37] VITALS: BP 129/77
[2018-08-31] MEDS: MAGNESIUM HYDROXIDE 8%, 30ML UDC PO PRN (13:41)
[2018-08-31 19:22] VITALS: BP 112/69
[2018-08-31] MEDS: AMITRIPTYLINE 50 MG TABLET PO SCH (20:05)
[2018-08-31] MEDS: DEXAMETHASONE 1 MG TABLET PO SCH (20:46)
[2018-09-01] MEDS ORDERED: HYDROmorphone 2MG TABLET ONE ×9 (00:55→21:43)
[2018-09-01] MEDS: HYDROmorphone 4MG TABLET PO PRN ×8 (00:57→21:44)
[2018-09-01 01:19] VITALS: BP 108/68
[2018-09-01] MEDS: METOCLOPRAMIDE 10MG TABLET PO PRN ×4 (02:48→20:52)
[2018-09-01] MEDS: DIPHENHYDRAMINE 25 MG CAPSULE PO PRN ×4 (02:48→20:52)
[2018-09-01 04:30] LABS: BASOPHILS # (AUTO) 0.01 x10^3/uL (0-0.1); BASOPHILS % (AUTO) 0 % (0-1); EOSINOPHILS # (AUTO) 0.16 x10^3/uL (0-0.4); EOSINOPHILS % (AUTO) 1 % (1-7); LYMPHOCYTES % (AUTO) 5 % (22-44); MD NO; MEAN CORPUSCULAR HEMOGLOBIN 31.2 pg (27.0-34.8); MEAN CORPUSCULAR HGB CONC 33.6 g/dL (32.4-35.8); MEAN CORPUSCULAR VOLUME 92.9 fL (80-100); MEAN PLATELET VOLUME 7.9 fL (7.4-10.4); MONOCYTES # (AUTO) 0.86 x10^3/uL (0.2-0.8); MONOCYTES % (AUTO) 6 % (2-9); NEUTROPHILS # (AUTO) 13.29 x10^3/uL (1.8-6.8); NEUTROPHILS % (AUTO) 88 % (42-75); PLATELET COUNT 237 x10^3/uL (130-400); RED BLOOD COUNT 3.87 x10^6/uL (3.82-5.3); RED CELL DISTRIBUTION WIDTH 14.9 % (9.6-15.2)
[2018-09-01 04:40] LABS: ALANINE AMINOTRANSFERASE 239 U/L (12-78); ALBUMIN 3.2 g/dL (3.4-5.0); ANION GAP 4 mmol/L (5-15); CHLORIDE 104 mmol/L (98-107); CREATININE 0.58 mg/dL (0.55-1.02)
[2018-09-01 04:42] LABS: ALKALINE PHOSPHATASE 110 U/L (45-117); BILIRUBIN,TOTAL 0.2 mg/dL (0.2-1.0); TOTAL PROTEIN 5.6 g/dL (6.4-8.2)
[2018-09-01] MEDS: NYSTATIN 500,000 UNITS/5 ML UDC PO SCH (06:33)
[2018-09-01 07:03] VITALS: BP 115/72
[2018-09-01] MEDS: DEXAMETHASONE 4 MG TABLET PO SCH (09:36)
[2018-09-01] MEDS: POTASSIUM CHLORIDE 20 MEQ TAB.ER.PRT PO SCH (09:37)
[2018-09-01] MEDS: CEFDINIR 300 MG CAPSULE PO SCH ×2 (09:37→20:52)
[2018-09-01] MEDS: SENNA/DOCUSATE TABLET PO SCH (09:37)
[2018-09-01] MEDS: MAGNESIUM HYDROXIDE 8%, 30ML UDC PO PRN (11:49)
[2018-09-01 13:32] VITALS: BP 108/70
[2018-09-01] MEDS ORDERED: FENTANYL 50 MCG PATCH ONE (15:08)
[2018-09-01] MEDS ORDERED: FENTANYL 25 MCG PATCH ONE (15:09)
[2018-09-01] MEDS: FENTANYL 75 MCG PATCH TD SCH (15:20)
[2018-09-01] MEDS: FENTANYL REMOVE PATCH NOTE XX SCH (15:30)
[2018-09-01 19:41] VITALS: BP 125/77
[2018-09-01] MEDS: AMITRIPTYLINE 50 MG TABLET PO SCH (20:52)
[2018-09-01] MEDS: DEXAMETHASONE 1 MG TABLET PO SCH (20:52)
[2018-09-01] MEDS: HYDROmorphone 2 MG/ML, 1ML IV PRN (21:38)
[2018-09-02] MEDS ORDERED: HYDROmorphone 2MG TABLET ONE ×4 (00:45→09:45)
[2018-09-02] MEDS: HYDROmorphone 4MG TABLET PO PRN ×4 (00:49→09:53)
[2018-09-02] MEDS: NS + 20MEQ KCL 1,000 ML IV SCH ×3 (00:50→20:00)
[2018-09-02 01:37] VITALS: BP 123/72
[2018-09-02] MEDS: DIPHENHYDRAMINE 25 MG CAPSULE PO PRN ×2 (02:55→23:43)
[2018-09-02] MEDS: METOCLOPRAMIDE 10MG TABLET PO PRN ×2 (02:55→23:43)
[2018-09-02 05:24] LABS: BASOPHILS % (AUTO) 0 % (0-1); EOSINOPHILS # (AUTO) 0.31 x10^3/uL (0-0.4); EOSINOPHILS % (AUTO) 2 % (1-7); INTERNATIONAL NORMALIZED RATIO 1.08 (0.93-1.1); LYMPHOCYTES # (AUTO) 0.75 x10^3/uL (1-3.4); LYMPHOCYTES % (AUTO) 5 % (22-44); MD NO; MEAN CORPUSCULAR HEMOGLOBIN 31.4 pg (27.0-34.8); MEAN CORPUSCULAR VOLUME 92.4 fL (80-100); MEAN PLATELET VOLUME 8.4 fL (7.4-10.4); MONOCYTES # (AUTO) 0.86 x10^3/uL (0.2-0.8); MONOCYTES % (AUTO) 6 % (2-9); NEUTROPHILS % (AUTO) 87 % (42-75); PLATELET COUNT 221 x10^3/uL (130-400); PROTHROMBIN TIME 11.3 Seconds (9.6-11.5); RED BLOOD COUNT 3.82 x10^6/uL (3.82-5.3); RED CELL DISTRIBUTION WIDTH 14.7 % (9.6-15.2)
[2018-09-02 05:30] LABS: CHLORIDE 105 mmol/L (98-107)
[2018-09-02 05:48] LABS: ANION GAP 5 mmol/L (5-15); CREATININE 0.52 mg/dL (0.55-1.02)
[2018-09-02 05:49] LABS: ALANINE AMINOTRANSFERASE 201 U/L (12-78); ALBUMIN 3.3 g/dL (3.4-5.0); ALKALINE PHOSPHATASE 106 U/L (45-117); BILIRUBIN,TOTAL 0.2 mg/dL (0.2-1.0); TOTAL PROTEIN 5.8 g/dL (6.4-8.2)
[2018-09-02] MEDS ORDERED: THROMBIN 20,000 UNIT VIAL TP ONE (06:25)
[2018-09-02 06:34] VITALS: BP 125/84
[2018-09-02] MEDS: DIPHENHYDRAMINE 50 MG/ML, 1ML IVPush PRN (08:55)
[2018-09-02] MEDS: METOCLOPRAMIDE 5 MG/ML, 2ML IVPush PRN (08:55)
[2018-09-02] MEDS: DEXAMETHASONE 4 MG TABLET PO SCH (09:00)
[2018-09-02] MEDS: CEFDINIR 300 MG CAPSULE PO SCH ×2 (09:00→22:01)
[2018-09-02] MEDS: SENNA/DOCUSATE TABLET PO SCH (09:00)
[2018-09-02] MEDS: POTASSIUM CHLORIDE 20 MEQ TAB.ER.PRT PO SCH (09:00)
[2018-09-02] MEDS ORDERED: EPINEPHRINE TOPICAL SOLN 1 MG/ML, 30ML ONE (11:18)
[2018-09-02] MEDS ORDERED: FLUORESCEIN SODIUM 500 MG/5 ML ONE (11:18)
[2018-09-02] MEDS ORDERED: OXYMETAZOLINE NASAL SPRAY 0.05%, 15ML ONE ×2 (11:18→14:59)
[2018-09-02] MEDS ORDERED: BACITRACIN OINT 500U/GM, 15 GM ONE (11:18)
[2018-09-02] MEDS ORDERED: BACITRACIN 50,000 UNIT ONE (11:19)
[2018-09-02] MEDS ORDERED: LIDOCAINE 1%-EPI 1:100K, 20ML ONE (11:19)
[2018-09-02] MEDS ORDERED: FENTANYL PF 250 MCG/5ML ONE (11:52)
[2018-09-02] MEDS ORDERED: MIDAZOLAM 1 MG/ML, 2ML ONE (11:52)
[2018-09-02] MEDS ORDERED: LORazepam 2 MG/ML, 1ML IVPush ONE (12:30)
[2018-09-02] MEDS ORDERED: GADOBUTROL 7.5 MMOL/7.5 ML PFS ONE (12:30)
[2018-09-02] MEDS ORDERED: PROPOFOL 50 ML ONE (12:42)
[2018-09-02 13:41] VITALS: BP 124/81
[2018-09-02] MEDS ORDERED: NALOXONE 1 MG/ML, 2ML ONE (14:32)
[2018-09-02] MEDS ORDERED: FLUMAZENIL 0.1 MG/1 ML, 5ML ONE (14:32)
[2018-09-02] MEDS ORDERED: MIDAZOLAM 1 MG/ML, 5ML ONE (14:32)
[2018-09-02] MEDS ORDERED: FENTANYL PF 100 MCG/2ML ONE ×2 (14:32)
[2018-09-02] MEDS ORDERED: NEOSTIGMINE 1 MG/ML, 10ML ONE (15:30)
[2018-09-02] MEDS ORDERED: GLYCOPYRROLATE 0.2MG/1ML, 5ML ONE (15:30)
[2018-09-02] MEDS ORDERED: DIPHENHYDRAMINE 50 MG/ML, 1ML ONE (15:30)
[2018-09-02] MEDS ORDERED: ROCURONIUM 10MG/ML,5ML ONE (15:30)
[2018-09-02] MEDS ORDERED: CEFTRIAXONE 1,000 MG ONE (17:05)
[2018-09-02] MEDS ORDERED: METOCLOPRAMIDE 5 MG/ML, 2ML IV PRN (18:00)
[2018-09-02] MEDS ORDERED: ACETAMINOPHEN 325 MG TABLET PO PRN (18:00)
[2018-09-02] MEDS ORDERED: FENTANYL PF 100 MCG/2ML IV PRN (18:00)
[2018-09-02] MEDS ORDERED: HYDROmorphone 2 MG/ML, 1ML IVPush PRN (18:00)
[2018-09-02] MEDS ORDERED: OXYcodone 5 MG/5 ML ORAL.SOL UDC PO PRN (18:00)
[2018-09-02] MEDS ORDERED: PROMETHAZINE 25 MG/ML, 1ML IV PRN (18:00)
[2018-09-02] MEDS ORDERED: LABETALOL 5MG/ML, 20ML IV PRN (18:00)
[2018-09-02] MEDS ORDERED: hydrALAzine 20 MG/ML, 1ML IV PRN (18:00)
[2018-09-02] MEDS ORDERED: DIPHENHYDRAMINE 50 MG/ML, 1ML IM PRN (18:00)
[2018-09-02] MEDS ORDERED: MEPERIDINE/PF 25MG/0.5ML IVPush PRN (18:00)
[2018-09-02 20:45] VITALS: BP 137/70
[2018-09-02] MEDS: SODIUM CHLORIDE 0.9% 1,000 ML IV SCH (21:05)
[2018-09-02] MEDS: HYDROmorphone 2 MG/ML, 1ML IV PRN (21:09)
[2018-09-02] MEDS: AMITRIPTYLINE 50 MG TABLET PO SCH (22:02)
[2018-09-02] MEDS: DEXAMETHASONE 1 MG TABLET PO SCH (22:02)
[2018-09-02 23:59] VITALS: BP 125/80
[2018-09-03 04:00] VITALS: BP 111/69
[2018-09-03] MEDS ORDERED: HYDROmorphone 2MG TABLET ONE ×4 (05:16→14:59)
[2018-09-03] MEDS: HYDROmorphone 4MG TABLET PO PRN ×4 (05:21→15:03)
[2018-09-03 05:57] LABS: BASOPHILS % (AUTO) 0 % (0-1); EOSINOPHILS % (AUTO) 0 % (1-7); LYMPHOCYTES # (AUTO) 0.67 x10^3/uL (1-3.4); LYMPHOCYTES % (AUTO) 4 % (22-44); MD NO; MEAN CORPUSCULAR HEMOGLOBIN 31.4 pg (27.0-34.8); MEAN CORPUSCULAR HGB CONC 33.7 g/dL (32.4-35.8); MEAN PLATELET VOLUME 7.8 fL (7.4-10.4); MONOCYTES # (AUTO) 0.95 x10^3/uL (0.2-0.8); MONOCYTES % (AUTO) 6 % (2-9); NEUTROPHILS % (AUTO) 90 % (42-75); PLATELET COUNT 210 x10^3/uL (130-400); RED BLOOD COUNT 3.67 x10^6/uL (3.82-5.3); RED CELL DISTRIBUTION WIDTH 15.7 % (9.6-15.2)
[2018-09-03 06:09] LABS: CHLORIDE 109 mmol/L (98-107)
[2018-09-03] MEDS: METOCLOPRAMIDE 10MG TABLET PO PRN (06:09)
[2018-09-03] MEDS: DIPHENHYDRAMINE 25 MG CAPSULE PO PRN (06:09)
[2018-09-03 06:37] LABS: ALANINE AMINOTRANSFERASE 145 U/L (12-78); ALBUMIN 3.2 g/dL (3.4-5.0); ALKALINE PHOSPHATASE 99 U/L (45-117); ANION GAP 6 mmol/L (5-15); BILIRUBIN,TOTAL 0.4 mg/dL (0.2-1.0); CALCIUM 7.8 mg/dL (8.5-10.1); CREATININE 0.49 mg/dL (0.55-1.02); TOTAL PROTEIN 5.5 g/dL (6.4-8.2)
[2018-09-03 07:50] VITALS: BP 112/72
[2018-09-03] MEDS: CEFDINIR 300 MG CAPSULE PO SCH ×2 (08:32→21:02)
[2018-09-03] MEDS: POTASSIUM CHLORIDE 20 MEQ TAB.ER.PRT PO SCH (08:33)
[2018-09-03] MEDS: DEXAMETHASONE 4 MG TABLET PO SCH (08:33)
[2018-09-03] MEDS: SENNA/DOCUSATE TABLET PO SCH (08:33)
[2018-09-03] MEDS ORDERED: DEXAMETHASONE 1 MG TABLET PO SCH (09:45)
[2018-09-03] MEDS: SODIUM CHLORIDE 0.9% 1,000 ML IV SCH ×2 (10:20→23:57)
[2018-09-03 11:45] VITALS: BP 124/77
[2018-09-03] MEDS: METOCLOPRAMIDE 5 MG/ML, 2ML IVPush PRN (12:46)
[2018-09-03] MEDS: DIPHENHYDRAMINE 50 MG/ML, 1ML IVPush PRN (12:46)
[2018-09-03] MEDS: HYDROmorphone 2 MG/ML, 1ML IV PRN ×2 (13:11→17:44)
[2018-09-03 13:39] VITALS: BP 123/83
[2018-09-03] MEDS ORDERED: KETOROLAC 30 MG/1 ML IVPush PRN (15:00)
[2018-09-03 15:15] VITALS: BP 115/79
[2018-09-03 18:41] VITALS: BP 109/73
[2018-09-03] MEDS: AMITRIPTYLINE 50 MG TABLET PO SCH (21:02)
[2018-09-03] MEDS ORDERED: HYDROmorphone 2 MG/ML, 1ML IV PRN (21:30)
[2018-09-03] MEDS: KETOROLAC 30 MG/1 ML IVPush PRN (22:37)
[2018-09-04 01:01] VITALS: BP 133/76
[2018-09-04] MEDS: ZOLPIDEM 5MG TABLET PO PRN (02:59)
[2018-09-04] MEDS: KETOROLAC 30 MG/1 ML IVPush PRN (04:34)
[2018-09-04 07:40] LABS: BASOPHILS # (AUTO) 0.03 x10^3/uL (0-0.1); BASOPHILS % (AUTO) 0 % (0-1); EOSINOPHILS # (AUTO) 0.02 x10^3/uL (0-0.4); EOSINOPHILS % (AUTO) 0 % (1-7); LYMPHOCYTES # (AUTO) 0.91 x10^3/uL (1-3.4); LYMPHOCYTES % (AUTO) 9 % (22-44); MD NO; MEAN CORPUSCULAR HEMOGLOBIN 30.6 pg (27.0-34.8); MEAN CORPUSCULAR HGB CONC 32.6 g/dL (32.4-35.8); MEAN CORPUSCULAR VOLUME 93.9 fL (80-100); MEAN PLATELET VOLUME 7.5 fL (7.4-10.4); MONOCYTES # (AUTO) 0.51 x10^3/uL (0.2-0.8); MONOCYTES % (AUTO) 5 % (2-9); NEUTROPHILS % (AUTO) 86 % (42-75); PLATELET COUNT 192 x10^3/uL (130-400); RED BLOOD COUNT 3.44 x10^6/uL (3.82-5.3); RED CELL DISTRIBUTION WIDTH 15.3 % (9.6-15.2)
[2018-09-04 07:45] LABS: ALANINE AMINOTRANSFERASE 110 U/L (12-78); ALBUMIN 2.8 g/dL (3.4-5.0); ANION GAP 6 mmol/L (5-15); CALCIUM 7.7 mg/dL (8.5-10.1); CHLORIDE 108 mmol/L (98-107); CREATININE 0.49 mg/dL (0.55-1.02)
[2018-09-04 07:47] LABS: ALKALINE PHOSPHATASE 94 U/L (45-117); BILIRUBIN,TOTAL 0.2 mg/dL (0.2-1.0); TOTAL PROTEIN 4.9 g/dL (6.4-8.2)
[2018-09-04] MEDS: POTASSIUM CHLORIDE 20 MEQ TAB.ER.PRT PO SCH (07:56)
[2018-09-04] MEDS: CEFDINIR 300 MG CAPSULE PO SCH ×2 (07:57→21:34)
[2018-09-04] MEDS: SENNA/DOCUSATE TABLET PO SCH (07:57)
[2018-09-04 11:11] VITALS: BP 142/85
[2018-09-04] MEDS: SODIUM CHLORIDE 0.9% 1,000 ML IV SCH (11:30)
[2018-09-04] MEDS ORDERED: KETOROLAC 10MG TABLET PO ONE (11:30)
[2018-09-04] MEDS ORDERED: CATHFLO-ALTEPLASE 2 MG/2 ML CATHFLUSH ONE (12:30)
[2018-09-04 13:58] VITALS: BP 127/78
[2018-09-04] MEDS ORDERED: FENTANYL 25 MCG PATCH ONE (15:29)
[2018-09-04] MEDS ORDERED: FENTANYL 50 MCG PATCH ONE (15:29)
[2018-09-04] MEDS: FENTANYL 75 MCG PATCH TD SCH (15:30)
[2018-09-04] MEDS: FENTANYL REMOVE PATCH NOTE XX SCH (15:30)
[2018-09-04] MEDS: KETOROLAC 10MG TABLET PO SCH ×2 (16:58→23:13)
[2018-09-04] MEDS: METOCLOPRAMIDE 10MG TABLET PO PRN (17:03)
[2018-09-04] MEDS: DIPHENHYDRAMINE 25 MG CAPSULE PO PRN (17:03)
[2018-09-04 20:15] VITALS: BP 143/88
[2018-09-04] MEDS: AMITRIPTYLINE 50 MG TABLET PO SCH (21:34)
[2018-09-05] MEDS: ZOLPIDEM 5MG TABLET PO PRN (02:55)
[2018-09-05 02:59] VITALS: BP 130/81
[2018-09-05] MEDS: KETOROLAC 10MG TABLET PO SCH ×2 (05:07→11:33)
[2018-09-05 06:38] LABS: BASOPHILS # (AUTO) 0.01 x10^3/uL (0-0.1); BASOPHILS % (AUTO) 0 % (0-1); EOSINOPHILS # (AUTO) 0.27 x10^3/uL (0-0.4); EOSINOPHILS % (AUTO) 2 % (1-7); LYMPHOCYTES # (AUTO) 0.99 x10^3/uL (1-3.4); LYMPHOCYTES % (AUTO) 9 % (22-44); MD NO; MEAN CORPUSCULAR HEMOGLOBIN 31.6 pg (27.0-34.8); MEAN CORPUSCULAR HGB CONC 34.3 g/dL (32.4-35.8); MEAN CORPUSCULAR VOLUME 92.2 fL (80-100); MEAN PLATELET VOLUME 7.9 fL (7.4-10.4); MONOCYTES # (AUTO) 0.56 x10^3/uL (0.2-0.8); MONOCYTES % (AUTO) 5 % (2-9); NEUTROPHILS # (AUTO) 9.69 x10^3/uL (1.8-6.8); NEUTROPHILS % (AUTO) 84 % (42-75); PLATELET COUNT 198 x10^3/uL (130-400); RED BLOOD COUNT 3.46 x10^6/uL (3.82-5.3); RED CELL DISTRIBUTION WIDTH 15.3 % (9.6-15.2)
[2018-09-05 06:48] LABS: ALANINE AMINOTRANSFERASE 100 U/L (12-78); ALBUMIN 2.8 g/dL (3.4-5.0); ANION GAP 4 mmol/L (5-15); CALCIUM 7.8 mg/dL (8.5-10.1); CHLORIDE 108 mmol/L (98-107); CREATININE 0.45 mg/dL (0.55-1.02)
[2018-09-05 06:50] LABS: ALKALINE PHOSPHATASE 100 U/L (45-117); BILIRUBIN,TOTAL 0.2 mg/dL (0.2-1.0); TOTAL PROTEIN 5.1 g/dL (6.4-8.2)
[2018-09-05 07:15] VITALS: BP 111/75
[2018-09-05] MEDS ORDERED: POTASSIUM CHLORIDE 20 MEQ TAB.ER.PRT PO SCH (08:00)
[2018-09-05] MEDS: SENNA/DOCUSATE TABLET PO SCH (08:09)
[2018-09-05] MEDS: CEFDINIR 300 MG CAPSULE PO SCH (08:09)
[2018-09-05] MEDS: POTASSIUM CHLORIDE 20 MEQ TAB.ER.PRT PO SCH (09:00)
[2018-09-05] MEDS ORDERED: NYSTATIN 500,000 UNITS/5 ML UDC PO SCH (11:00)
[2018-09-05] MEDS ORDERED: POTA20TA6 PO (11:16)
[2018-09-05] MEDS ORDERED: CEFD300C37 PO ×2 (11:16)
[2018-09-05] MEDS ORDERED: NYST1000 PO (11:16)
[2018-09-05] MEDS ORDERED: PRED20TA PO (11:16)
[2018-09-05] MEDS ORDERED: FENT1PAT77 TD (11:47)
[2018-09-05] MEDS ORDERED: DIPH25CA61 PO (11:47)
[2018-09-05] MEDS ORDERED: HYDR2TAB29 PO (13:40)
[2018-09-05] MEDS ORDERED: KETO10TA PO (13:42)
[2018-09-05] MEDS ORDERED: AMIT50TA PO (13:44)
[2018-09-05] MEDS ORDERED: METO10TA82 PO (13:44)
[2018-09-05] MEDS ORDERED: SULF1TAB23 PO (14:47)
== END 2018-09-05 14:10 | disposition home or self-care (01) | DRG 135 ==
LOC: 3NW 19:05 → DCLOUNGE 09-05 13:40
PROVIDERS: ADMIT Internal Medicine; ATTEND Internal Medicine
PROC: B01B1ZZ Fluoroscopy of Spinal Cord using Low Osmolar Contrast (ICD-10-PCS; 2018-08-29)
PROC: 009U3ZX Drainage of Spinal Canal, Percutaneous Approach, Diagnostic (ICD-10-PCS; 2018-08-29)
PROC: 099Q0ZZ Drainage of Right Maxillary Sinus, Open Approach (ICD-10-PCS; 2018-09-02)
PROC: 09TV0ZZ Resection of Left Ethmoid Sinus, Open Approach (ICD-10-PCS; 2018-09-02)
PROC: 09TU0ZZ Resection of Right Ethmoid Sinus, Open Approach (ICD-10-PCS; 2018-09-02)
PROC: 03HY32Z Insertion of Monitoring Device into Upper Artery, Percutaneous Approach (ICD-10-PCS; 2018-09-02)
PROC: 099R0ZZ Drainage of Left Maxillary Sinus, Open Approach (ICD-10-PCS; principal; 2018-09-02 13:30)
DX: J01.30 Acute sphenoidal sinusitis, unspecified (principal); C79.51 Secondary malignant neoplasm of bone; J90 Pleural effusion, not elsewhere classified; N13.30 Unspecified hydronephrosis; C34.90 Malignant neoplasm of unspecified part of unspecified bronchus or lung; E23.0 Hypopituitarism; J01.00 Acute maxillary sinusitis, unspecified; B37.2 Candidiasis of skin and nail; G43.011 Migraine without aura, intractable, with status migrainosus; D49.7 Neoplasm of unspecified behavior of endocrine glands and other parts of nervous system; E87.6 Hypokalemia; G47.00 Insomnia, unspecified; B95.7 Other staphylococcus as the cause of diseases classified elsewhere; T38.0X5A Adverse effect of glucocorticoids and synthetic analogues, initial encounter; Y92.89 Other specified places as the place of occurrence of the external cause; Z85.118 Personal history of other malignant neoplasm of bronchus and lung; Z92.21 Personal history of antineoplastic chemotherapy; Z92.3 Personal history of irradiation
CPT/HCPCS: 36415; 77003; 82024; 86592; J3490; Q0164; 70450; 70486; 70543; 70553; 71260; 74177; 76700; 80048; 80053; 80074; 80076; 80202; 80307; 82533; 82945; 83001; 83002; 83735; 84100; 84146; 84157; 84439; 84443; 84481; 85025; 85610; 85651; 86850; 86900; 87070; 87075; 87077; 87102; 87186; 87205; 88108; 88305; 88311; 89051; 93005; A9585; G0378; J0295; J0696; J1100; J1170; J1885; J2250; J2704; J2710; J2997; J3010; J3370; J3480; Q9967; J0780; J1200; J2060; J2310; J2765; J3030; J7030; J7050; J7512; Q0163

== ENCOUNTER 2018-11-25 11:01 | Day surgery (SDC) | payer OTHER ==
[~2018-11-25] VITALS: Ht 175.3 cm; Wt 61.0 kg
[~2018-11-25 11:01] MED LIST changes: +AMIT50TA PO; +CEFD300C37 PO; +DIPH25CA61 PO; +FENT1PAT77 TD; +HYDR2TAB29 PO; +IBUP-1623 PO; +KETO10TA PO; +METO10TA82 PO; +NYST1000 PO; +OSIM80TA PO; +OXYC-302 PO; +POTA20TA6 PO; +PRED20TA PO; +PROC5TAB40 PO; +SULF1TAB23 PO; +ZOLP5TAB PO
[2018-11-25 12:04] VITALS: BP 102/69
[2018-11-25 12:14] VITALS: BP 102/69
[2018-11-25] MEDS ORDERED: LACTATED RINGERS 1,000 ML IV SCH (12:26)
[2018-11-25] MEDS ORDERED: GABA300C10 PO (12:33)
[2018-11-25] MEDS ORDERED: OSIM80TA PO (12:33)
[2018-11-25] MEDS ORDERED: OMEP-110 PO (12:33)
[2018-11-25] MEDS ORDERED: FLUD0.1T PO (12:33)
[2018-11-25] MEDS ORDERED: PLEASE ENTER ALLERGIES MC SCH (13:00)
[2018-11-25] MEDS ORDERED: ONDANSETRON 2MG/ML, 2ML ONE ×2 (13:26→13:30)
[2018-11-25] MEDS ORDERED: PROPOFOL 10 MG/ML, 20ML ONE (13:30)
[2018-11-25] MEDS ORDERED: HYDROCORTISONE 100 MG INJ. ONE (13:34)
[2018-11-25] MEDS ORDERED: GADOBUTROL 7.5 MMOL/7.5 ML PFS ONE (13:54)
[2018-11-25] MEDS ORDERED: FENTANYL PF 100 MCG/2ML IV PRN (14:30)
[2018-11-25] MEDS ORDERED: PROMETHAZINE 25 MG/ML, 1ML IV PRN (14:30)
[2018-11-25] MEDS ORDERED: PROCHLORPERAZINE 5 MG/ML, 2ML IV PRN (14:30)
[2018-11-25] MEDS ORDERED: HYDROmorphone 2 MG/ML, 1ML ONE (14:38)
[2018-11-25] MEDS: HYDROmorphone 2 MG/ML, 1ML IVPush PRN ×2 (14:40→14:47)
== END 2018-11-25 16:15 | disposition home or self-care (01) ==
LOC: OUT 11:01 → EDSTATUS 12:45 → OUT 16:15
PROVIDERS: ATTEND Otolaryngology
DX: R93.0 Abnormal findings on diagnostic imaging of skull and head, not elsewhere classified (principal); C34.32 Malignant neoplasm of lower lobe, left bronchus or lung; C79.51 Secondary malignant neoplasm of bone; E27.40 Unspecified adrenocortical insufficiency
CPT/HCPCS: 70553; A9585; J1170; J1720; J2405; J2704; J7120

== ENCOUNTER 2018-12-14 08:06 | Outpatient (CLI) | payer OTHER ==
[~2018-12-14 08:06] MED LIST changes: +FLUD0.1T PO; +GABA300C10 PO; +OMEP-110 PO
[2018-12-30] MEDS ORDERED: HYDR4TAB48 PO (11:40)
[2018-12-30] MEDS ORDERED: SENN8.6T64 PO (11:40)
[2018-12-30] MEDS ORDERED: POTA10TA6 PO (11:40)
[2019-01-05] MEDS ORDERED: AMIT50TA PO (06:34)
[2019-01-05] MEDS ORDERED: KETO10TA PO (06:34)
[2019-01-05] MEDS ORDERED: PRED20TA PO (06:34)
[2019-01-05] MEDS ORDERED: ZOLP-413 PO (06:34)
[2019-01-05] MEDS ORDERED: FENT1PAT77 TD (06:34)
== END 2018-12-14 23:59 | disposition home or self-care (01) ==
LOC: ROC 08:06
PROVIDERS: ATTEND Radiology Radiation Oncology
DX: C34.90 Malignant neoplasm of unspecified part of unspecified bronchus or lung (principal); C79.51 Secondary malignant neoplasm of bone
CPT/HCPCS: 99214; G0463

== ENCOUNTER 2018-12-30 10:58 | Day surgery (SDC) | payer OTHER ==
[~2018-12-30] VITALS: Ht 175.3 cm; Wt 58.0 kg
[2018-12-30 11:44] VITALS: BP 115/79
== END 2018-12-30 18:57 | disposition home or self-care (01) ==
LOC: OUT 10:58 → EDSTATUS 12:45 → OUT 18:57
PROVIDERS: ATTEND Radiology Radiation Oncology
DX: C75.1 Malignant neoplasm of pituitary gland (principal); C79.51 Secondary malignant neoplasm of bone; M48.04 Spinal stenosis, thoracic region; M54.12 Radiculopathy, cervical region; M25.78 Osteophyte, vertebrae; Z79.899 Other long term (current) drug therapy; Z85.118 Personal history of other malignant neoplasm of bronchus and lung
CPT/HCPCS: 70553; 72156; A9585; J2405; J2704